=== PATIENT | female | born 1995 | race Caucasian/White ===

== ENCOUNTER 2024-01-19 14:57 | Outpatient (CLI) | payer BC | END 2024-01-19 14:58 | disposition home or self-care (01) | LOC: CSHLAB 14:57 | PROVIDERS: ATTEND Obstetrics & Gynecology | DX: Z01.812 Encounter for preprocedural laboratory examination (principal); N87.9 Dysplasia of cervix uteri, unspecified | CPT/HCPCS: 84703; 85027; 86850; 86900; 86901 ==

== ENCOUNTER 2024-01-20 09:30 | Day surgery (SDC) | payer BC ==
[2024-01-19 15:18] VITALS: BMI 29.6
[2024-01-19 16:39] LABS: Hematocrit 37.7 % (34.9-44.5); Hemoglobin 12.3 g/dL (12.0-15.5); Mean Corpuscular HGB CONC 32.6 g/dL (32.0-36.0); Mean Corpuscular Hemoglobin 29.8 pg (27.0-33.0); Mean Corpuscular Volume 91.3 fL (81.6-98.3); Platelet Count 246 10x3/uL (150-450); RBC Distribution Width 12.4 % (11.5-14.5); Red Blood Cell (RBC) Count 4.13 10x6/uL (3.90-5.03); White Blood Cell (WBC) Count 8.8 10x3/uL (3.5-10.5)
[2024-01-19 18:13] LABS: BHCG - Serum Negative (NEGATIVE); Pregs Control Background? CLEAR/WHITE (CLR/WHITE); Pregs Control Bar Appear? YES (CONTROL BAR)
[2024-01-20] MEDS ORDERED: Gabapentin 300 MG CAP ONE (09:44)
[2024-01-20] MEDS ORDERED: CeleCOXIB 100 MG CAP ONE (09:44)
[2024-01-20] MEDS ORDERED: Scopolamine 1 mg/72 hour Patch ONE (10:01)
[2024-01-20] MEDS ORDERED: Lidocaine 1% PF 5 ML VIAL ONE (10:13)
[2024-01-20] MEDS ORDERED: Dexamethasone 4 mg/ml Vial ONE (10:13)
[2024-01-20] MEDS ORDERED: PROPOFOL 20 ML ONE ×2 (10:13→12:14)
[2024-01-20] MEDS ORDERED: Ondansetron PF 4 MG/2 ML Vial ONE (10:13)
[2024-01-20] MEDS ORDERED: fentaNYL 50 mcg/mL 1 mL Vial ONE (10:40)
[2024-01-20] MEDS ORDERED: CEFAZOLIN 2 GM VIAL ONE (10:46)
[2024-01-20] MEDS ORDERED: Lidocaine 1% w/Epinephrine 1:200K 30 ML VIAL ONE (12:18)
[2024-01-20] MEDS ORDERED: Ferric Subsulfate 8 ML TOPICAL SOLN ONE (13:33)
[2024-01-20] MEDS ORDERED: HYDROcodone/Acetaminophen 5/325 mg Tablet ONE (13:49)
== END 2024-01-20 14:00 | disposition home or self-care (01) ==
LOC: CSHSDC 09:30
PROVIDERS: ATTEND Obstetrics & Gynecology
DX: N87.9 Dysplasia of cervix uteri, unspecified (principal); R87.613 High grade squamous intraepithelial lesion on cytologic smear of cervix (HGSIL); R87.612 Low grade squamous intraepithelial lesion on cytologic smear of cervix (LGSIL); J45.909 Unspecified asthma, uncomplicated; Z79.899 Other long term (current) drug therapy; Z88.1 Allergy status to other antibiotic agents
CPT/HCPCS: 36415; 84703; 85027; 86850; 86900; 86901; 88305; 88307; J1100; J2405; J2704; J3010

== ENCOUNTER 2024-01-30 12:24 | Emergency (ER) | payer BC ==
[2024-01-30 13:46] LABS: Bilirubin Neg (Negative); Blood, Urine 250 (Negative); Clarity Clear (Clear); Glucose, Urine (Dipstick) Normal (Negative); Ketone, Urine Negative (Negative); Leukocyte 100 (Negative); Nitrite Negative (Negative); Protein, Urine (Dipstick) 30 mg/dl (Neg-Trace); Specific Gravity, Urine 1.005 (1.005-1.030); Urobilinogen Normal mg/dL (Less than 2)
[2024-01-30 13:47] LABS: #Basophils 0.03 10x3/uL (0.0-0.2); #Eosinophils 0.28 10x3/uL (0.0-0.5); #Monocytes 0.89 10x3/uL (0.0-1.1); #Neutrophils 5.53 10x3/uL (1.5-8.4); %Basophils 0.3 % (0.0-2.0); %Eosinophils 2.5 % (0.0-6.0); %Lymphocytes 38.8 % (18.0-47.0); %Neutrophils 49.9 % (40.0-75.0); Hemoglobin 11.5 g/dL (12.0-15.5); Mean Corpuscular HGB CONC 32.9 g/dL (32.0-36.0); Mean Corpuscular Hemoglobin 29.6 pg (27.0-33.0); Mean Platelet Volume 9.7 fL (7.4-10.4); Platelet Count 248 10x3/uL (150-450); RBC Distribution Width 12.3 % (11.5-14.5); Red Blood Cell (RBC) Count 3.89 10x6/uL (3.90-5.03); White Blood Cell (WBC) Count 11.1 10x3/uL (3.5-10.5)
[2024-01-30 13:59] LABS: BHCG - Serum Negative (NEGATIVE); Pregs Control Background? CLEAR/WHITE (CLR/WHITE); Pregs Control Bar Appear? YES (CONTROL BAR)
[2024-01-30 14:01] LABS: ALT (SGPT) 12 U/L (8-55); AST (SGOT) 19 U/L (5-34); Albumin 4.1 g/dL (3.5-5.0); Alkaline Phosphatase 50 U/L (40-110); Anion Gap 11 mmol/L (10-20); BUN (Urea Nitrogen) 11 mg/dL (7.0-18.7); Bilirubin, Total 0.4 mg/dL (0.2-1.2); Calc. Creatinine Clearance 0 mL/min (70-130); Calcium 9.5 mg/dL (7.8-10.44); Carbon Dioxide 27 mmol/L (22-29); Chloride 104 mmol/L (98-107); Estimated GFR 97; Globulin 2.9 g/dL (2.4-3.5); Glucose 82 mg/dL (70-105); Potassium 3.7 mmol/L (3.5-5.1); Sodium 138 mmol/L (136-145)
[2024-01-30 14:01] LABS: Bacteria/HPF 1+ HPF (None Seen); CAUTI Indications for Culture Dysuria,urgency,freq; Squamous Epithelial 0-3 HPF (0-3); WBC/HPF 0-3 HPF (0-3)
[2024-01-30 14:02] LABS: Urine Culture Reflex No No
[2024-01-31 14:43] LABS: Chlamydia by PCR, Vaginal Swab Not Detected (NotDetected); GC by PCR, Vaginal Swab Not Detected (NotDetected)
== END 2024-01-30 14:48 | disposition home or self-care (01) ==
LOC: CSHERS 12:24
DX: N76.0 Acute vaginitis (principal); N99.820 Postprocedural hemorrhage of a genitourinary system organ or structure following a genitourinary system procedure; N39.0 Urinary tract infection, site not specified; Z55.6 Problems related to health literacy
CPT/HCPCS: 80053; 81001; 84703; 85025; 87480; 87491; 87510; 87591; 87660; 99284